=== PATIENT | female | born 1985 | race Caucasian/White ===

== ENCOUNTER 2020-06-23 21:32 | Emergency (ER) | payer OTHER, MEDICAID ==
[~2020-06-23] VITALS: Ht 162.6 cm; Wt 68.0 kg
[2020-06-23 21:45] VITALS: BP_SYST 137
--- NOTE | 2020-06-23 21:45 | NUR ---
Patient to ER bed 2 to gown for evaluation. Side rails up. Report given to MARCH.
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
--- NOTE | 2020-06-23 22:05 | NUR ---
ER Dr. ENCISO at bedside examining patient.
--- NOTE | 2020-06-23 22:32 | NUR ---
X-ray at bedside.
--- NOTE | 2020-06-23 23:05 | NUR ---
Patient given written and verbal discharge instructions and verbalizes understanding. DR. ZARIA VAZQUEZ MD discussed with patient the results and treatment provided. Patient in stable condition. ID arm band removed. Rx of NAPROSYN AND FLEXIRIL given. Patient educated on pain management and to follow up with PMD. Pain Scale 0/10. Opportunity for questions provided and answered. Medication side effect fact sheet provided.
== END 2020-06-23 23:05 | disposition home or self-care (01) ==
LOC: SED 21:32
DX: S39.012A Strain of muscle, fascia and tendon of lower back, initial encounter (principal); S80.02XA Contusion of left knee, initial encounter; V49.50XA Passenger injured in collision with unspecified motor vehicles in traffic accident, initial encounter; Y93.89 Activity, other specified; Y92.89 Other specified places as the place of occurrence of the external cause; Y99.8 Other external cause status
CPT/HCPCS: 73560-TC; 99283